=== PATIENT | male | born 1975 | race Caucasian/White ===

== ENCOUNTER 2017-03-26 16:45 | Emergency (ER) | payer OTHER ==
[2017-03-26] MEDS ORDERED: NORMAL SALINE 1000 ML 1,000 ML IV ONE (17:05)
--- NOTE | 2017-03-26 17:07 | ER Document Report ---
ED Cardiac - General Stated Complaint: INCREASED HEART RATE Time Seen by Provider: 03/26/17 16:52 Notes: Patient is a 42 year old male who presents to the ED via EMS with a chief complaint of palpitations. Patient states that earlier this afternoon he sat down to drink a beer and sat on the couch and had sudden onset of palpitations. EMS arrived on the scene found him to be in SVT. Vagal maneuvers were attempted twice followed by 6 mg of adenosine and again with 12 mg of adenosine which was able to break amount of SVT. Patient was brought to the emergency department for evaluation. She denies any previous history of palpitations, SVT. Past medical history significant for PTSD on Prozac and BuSpar. 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 At this time he denies any dizziness, palpitations, chest pain, shortness of breath, difficulty breathing, cough, nausea, vomiting, abdominal pain. - Related Data Allergies/Adverse Reactions: codeine [Codeine] Allergy (Intermediate, Verified 11/19/10 12:05) Hives Past Medical History - Social History Smoking Status: Current Every Day Smoker Family History: Reviewed & Not Pertinent - Past Medical History Cardiac Medical History: Denies: Hx Heart Attack, Hx Hypertension Pulmonary Medical History: Denies: Hx Asthma Neurological Medical History: Denies: Hx Cerebrovascular Accident, Hx Seizures GI Medical History: Denies: Hx Hepatitis, Hx Hiatal Hernia, Hx Ulcer Musculoskeltal Medical History: Infectious Medical History: Denies: Hx Hepatitis Past Surgical History: Denies: Hx Open Heart Surgery, Hx Pacemaker Review of Systems - Review of Systems Constitutional: No symptoms reported Cardiovascular: See HPI Respiratory: No symptoms reported Gastrointestinal: No symptoms reported Musculoskeletal: No symptoms reported Neurological/Psychological: No symptoms reported -: Yes All other systems reviewed and negative Physical Exam - Vital signs Vitals: BP 112/94 H 03/26/17 16:45 - Notes Notes: PHYSICAL EXAM GENERAL: Alert, interacts well. HEAD: Normocephalic, atraumatic. EYES: Pupils equal, round, and reactive to light. Extraocular movements intact. NECK: Full range of motion. Supple. Trachea midline. LUNGS: Clear to auscultation bilaterally, no wheezes, rales, or rhonchi. No respiratory distress. HEART: Regular rate and rhythm. No murmurs, gallops, or rubs. ABDOMEN: Soft, nondistended, nontender. No guarding, rebound, or rigidity.. Bowel sounds present in all 4 quadrants. EXTREMITIES: Moves all 4 extremities spontaneously. No edema, radial and dorsalis pedis pulses 2/4 bilaterally. No cyanosis. NEUROLOGICAL: Alert and oriented x4. Normal speech. PSYCH: Normal affect, normal mood. SKIN: Warm, dry, normal turgor. No rashes or lesions noted. Course - Re-evaluation Re-evalutation: 03/26/17 18:45 Patient is a 42-year-old male who is hemodynamically stable, no acute distress and afebrile. Presentation is consistent with paroxysmal supraventricular tachycardia. Patient tachycardia resolved after receiving adenosine via EMS. Patient clinically feels fine and wants to be discharged. CBC stable without any evidence of leukocytosis or anemia. D-dimer negative. Patient is PERC negative. Chemistry stable without any evidence of electrolyte abnormalities. Troponin not elevated. In thyroid function is stable. Patient educated on causes of a CT as well as indication for follow-up with cardiology. Patient agrees with plan. Discussed vagal maneuvers to do at home and otherwise patient is stable for discharge. - Vital Signs Vital signs: Temp Pulse Resp BP Pulse Ox 98.1 F 20 130/94 H 98 03/26/17 17:23 03/26/17 18:01 03/26/17 18:01 03/26/17 18:01 - Laboratory Result Diagrams: 03/26/17 17:03 03/26/17 17:39 Laboratory results interpreted by me: 03/26/17 03/26/17 17:03 17:39 RBC 5.78 H Hgb 18.1 H Hct 52.3 H AST 62 H ALT 83 H Discharge - Discharge Clinical Impression: SVT (supraventricular tachycardia) Condition: Good Disposition: HOME, SELF-CARE Instructions: Paroxysmal Supraventricular Tachycardia ([facility]) Forms: Return to Work, Treatment of Relative/Child Referrals: MARISSA ONEIL MD [EMERITUS] - Follow up in 1 week
[2017-03-26 17:14] LABS: ABSOLUTE BASOPHILS # (AUTO) 0.1 10^3/uL (0.0-0.2); ABSOLUTE EOSINOPHILS # (AUTO) 0.3 10^3/uL (0.0-0.6); ABSOLUTE MONOCYTES (AUTO) 0.9 10^3/uL (0.1-1.4); ABSOLUTE NEUT (AUTO) 6.1 10^3/uL (1.7-8.2); EOSINOPHILS % (AUTO) 2.7 % (0-6); HEMATOCRIT 52.3 % (37.9-51.0); HEMOGLOBIN 18.1 g/dL (13.5-17.0); MEAN CORPUSCULAR HEMOGLOBIN 31.3 pg (27.0-33.4); MEAN CORPUSCULAR HGB CONC 34.6 g/dL (32.0-36.0); MEAN CORPUSCULAR VOLUME 90 fl (80-97); MONOCYTES % (AUTO) 10.1 % (3-13); RED BLOOD COUNT 5.78 10^6/uL (4.35-5.55); RED CELL DISTRIBUTION WIDTH 13.6 % (11.5-14.0); SEGMENTED NEUTROPHILS % (AUTO) 65.2 % (42-78); WHITE BLOOD COUNT 9.4 10^3/uL (4.0-10.5)
--- NOTE | 2017-03-26 18:00 | EKG REPORT ---
SEVERITY:- OTHERWISE NORMAL ECG - SINUS TACHYCARDIA : Confirmed by: Jesse Slaughter MD 26-Mar-2017 17:59:15
[2017-03-26 18:10] LABS: ALANINE AMINOTRANSFERASE 83 U/L (21-72); ALBUMIN 4.2 g/dL (3.5-5.0); ALKALINE PHOSPHATASE 70 U/L (38-126); ANION GAP 9 (5-19); ASPARTATE AMINO TRANSFERASE 62 U/L (17-59); BILIRUBIN,DIRECT 0.3 mg/dL (0.0-0.4); BILIRUBIN,TOTAL 0.4 mg/dL (0.2-1.3); BLOOD UREA NITROGEN 15 mg/dL (7-20); CALCIUM 9.6 mg/dL (8.4-10.2); CARBON DIOXIDE 25 mmol/L (22-30); CHLORIDE 107 mmol/L (98-107); CREATINE KINASE 65 U/L (55-170); CREATININE RESULT 0.94 mg/dL (0.52-1.25); GLUCOSE 92 mg/dL (75-110); SODIUM 141.4 mmol/L (137-145); TOTAL PROTEIN 6.8 g/dL (6.3-8.2)
[2017-03-26 18:25] LABS: FREE T3 4.39 pg/mL (2.77-5.27)
[2017-03-26 18:39] LABS: THYROID STIMULATING HORMONE 1.2 uIU/mL (0.47-4.68)
[2017-03-26 18:46] VITALS: BP 127/92
== END 2017-03-26 18:49 | disposition home or self-care (01) ==
LOC: ER 16:45
DX: I47.1 Supraventricular tachycardia (principal); F43.10 Post-traumatic stress disorder, unspecified; Z79.899 Other long term (current) drug therapy; F17.200 Nicotine dependence, unspecified, uncomplicated; Z88.5 Allergy status to narcotic agent
CPT/HCPCS: 93005; 99285; 96360; 36415; 82550; 84443; 85025; 80053; 84484; 84481; 85379; 93010; J7030

== ENCOUNTER 2019-12-05 07:27 | Emergency (ER) | payer OTHER ==
[2019-12-05 08:07] LABS: ABSOLUTE BASOPHILS # (AUTO) 0.1 10^3/uL (0.0-0.2); ABSOLUTE EOSINOPHILS # (AUTO) 0.2 10^3/uL (0.0-0.6); ABSOLUTE LYMPHOCYTES (AUTO) 1.7 10^3/uL (0.5-4.7); ABSOLUTE MONOCYTES (AUTO) 0.8 10^3/uL (0.1-1.4); ABSOLUTE NEUT (AUTO) 8.9 10^3/uL (1.7-8.2); BASOPHILS % (AUTO) 0.7 % (0-2); EOSINOPHILS % (AUTO) 1.5 % (0-6); HEMATOCRIT 47.1 % (37.9-51.0); HEMOGLOBIN 16.2 g/dL (13.5-17.0); LYMPHOCYTES % (AUTO) 14.8 % (13-45); MEAN CORPUSCULAR HEMOGLOBIN 31.5 pg (27.0-33.4); MEAN CORPUSCULAR HGB CONC 34.4 g/dL (32.0-36.0); MEAN CORPUSCULAR VOLUME 92 fl (80-97); MONOCYTES % (AUTO) 6.5 % (3-13); PLATELET COUNT 213 10^3/uL (150-450); RED BLOOD COUNT 5.14 10^6/uL (4.35-5.55); RED CELL DISTRIBUTION WIDTH 13.6 % (11.5-14.0); SEGMENTED NEUTROPHILS % (AUTO) 76.5 % (42-78); TOTAL CELLS COUNTED % (AUTO) 100 %; WHITE BLOOD COUNT 11.6 10^3/uL (4.0-10.5)
--- NOTE | 2019-12-05 08:10 | RADIOLOGY REPORT (SQ) ---
EXAM DESCRIPTION: CHEST SINGLE VIEW IMAGES COMPLETED DATE/TIME: 12/05/2019 8:02 am REASON FOR STUDY: SVT COMPARISON: None. EXAM PARAMETERS: NUMBER OF VIEWS: One view. TECHNIQUE: Single frontal radiographic view of the chest acquired. RADIATION DOSE: NA LIMITATIONS: None. FINDINGS: LUNGS AND PLEURA: No opacities, masses or pneumothorax. No pleural effusion. MEDIASTINUM AND HILAR STRUCTURES: No masses. Contour normal. HEART AND VASCULAR STRUCTURES: Heart normal in size. Normal vasculature. BONES: No acute findings. HARDWARE: None in the chest. OTHER: No other significant finding. IMPRESSION: NO ACUTE RADIOGRAPHIC FINDING IN THE CHEST. TECHNICAL DOCUMENTATION: JOB ID: [id number] [employer]- All Rights Reserved Reading location - IP/workstation name: [email or web address]
[2019-12-05 08:14] LABS: ALBUMIN 4.1 g/dL (3.5-5.0); ALKALINE PHOSPHATASE 73 U/L (38-126); ANION GAP 5 (5-19); ASPARTATE AMINO TRANSFERASE 30 U/L (17-59); BILIRUBIN,DIRECT 0.3 mg/dL (0.0-0.4); BILIRUBIN,TOTAL 0.5 mg/dL (0.2-1.3); BLOOD UREA NITROGEN 17 mg/dL (7-20); CALCIUM 9.1 mg/dL (8.4-10.2); CARBON DIOXIDE 23 mmol/L (22-30); CHLORIDE 113 mmol/L (98-107); CREATINE KINASE 100 U/L (55-170); GLUCOSE 98 mg/dL (75-110); POTASSIUM 4.7 mmol/L (3.6-5.0); TOTAL PROTEIN 6.5 g/dL (6.3-8.2)
--- NOTE | 2019-12-05 08:25 | ER Document Report ---
ED General - General Chief Complaint: Arrhythmia Stated Complaint: RAPID HEART RATE Time Seen by Provider: 12/05/19 08:25 Primary Care Provider: ELSI VALENTINE MD [ACTIVE STAFF] - Follow up as needed LIAT MENDOZA MD [ACTIVE PROVISIONAL STAFF] - Follow up as needed - [facility] Notes: 44-year-old male presents after an episode of SVT. Patient reports he has a history of SVT, this is now his third episode. He reports his first episode was a little over a year ago, he received adenosine which converted him. He states that he had an episode yesterday where he felt his heart racing, he performed a vagal maneuver by bearing down which converted him. Patient states that around 630 this morning he again felt that his heart was racing, vagal maneuvers did not work. He received 12 mg of adenosine via EMS, report initial rate was 203. He went into sinus rhythm after that. 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 He is not on any current medication. He does note potentially he is dehydrated as he has been moving the past 2 days and has been sweating a lot in the heat. He otherwise currently denies complaints and would like to go home. - Related Data Allergies/Adverse Reactions: codeine [Codeine] Allergy (Intermediate, Verified 11/19/10 12:05) Hives Past Medical History - Social History Smoking Status: Unknown if Ever Smoked Family History: Reviewed & Not Pertinent Patient has homicidal ideation: No - Past Medical History Cardiac Medical History: Denies: Hx Heart Attack, Hx Hypertension Pulmonary Medical History: Denies: Hx Asthma Neurological Medical History: Denies: Hx Cerebrovascular Accident, Hx Seizures Renal/ Medical History: Denies: Hx Peritoneal Dialysis GI Medical History: Denies: Hx Hepatitis, Hx Hiatal Hernia, Hx Ulcer Musculoskeletal Medical History: Infectious Medical History: Denies: Hx Hepatitis Past Surgical History: Denies: Hx Open Heart Surgery, Hx Pacemaker Review of Systems - Review of Systems Constitutional: denies: Chills, Fever EENT: No symptoms reported Cardiovascular: denies: Chest pain Respiratory: denies: Short of breath Gastrointestinal: denies: Abdominal pain, Nausea, Vomiting Genitourinary: denies: Dysuria Male Genitourinary: No symptoms reported Musculoskeletal: denies: Muscle pain Skin: No symptoms reported Hematologic/Lymphatic: No symptoms reported Neurological/Psychological: denies: Weakness Physical Exam - Vital signs Vitals: Resp Pulse Ox 22 H 94 12/05/19 07:40 12/05/19 07:40 - General General appearance: Appears well In distress: None - HEENT Head: Normocephalic, Atraumatic Extraocular movements intact: Yes Neck: Other - No JVD - Respiratory Breath sounds: Normal - Cardiovascular Rhythm: Regular Heart sounds: Normal auscultation Murmur: No Pulses: Normal: Radial - Abdominal Tenderness: Nontender - Extremities General upper extremity: Normal ROM General lower extremity: Normal ROM. No: Edema - Neurological Neuro grossly intact: Yes Cognition: Normal Orientation: AAOx4 - Psychological Associated symptoms: Normal affect - Skin Skin Temperature: Warm Course - Re-evaluation Re-evalutation: 44-year-old male with successful conversion to normal sinus rhythm from SVT following 12 mg of adenosine administered by EMS. Now his third episode. He is well-appearing, continues in normal sinus rhythm, no gross physical exam abnormalities. Patient agreeable to stay for laboratory evaluation to eval for any electrolyte abnormalities. Would have a low suspicion for rhabdo however will assess with CK. Give fluids. 12/05/19 09:16 Labs reviewed. Minimal leukocytosis, likely reactionary. Electrolytes okay. Creatinine within normal limits. No elevation of CK to suggest rhabdo. 12/05/19 09:44 No UTI. No consolidation on chest x-ray. I went in to update patient on his lab results. He has remained in normal sinus rhythm throughout his duration here. He reports he is ready to go home. Discussed with him need to follow-up with cardiology, he states [facility]. Return cautions were given, patient was stable at time of discharge. - Vital Signs Vital signs: Temp Pulse Resp BP Pulse Ox 98.2 F 22 H 123/79 96 12/05/19 07:41 12/05/19 08:01 12/05/19 08:00 12/05/19 08:01 - Laboratory Result Diagrams: 12/05/19 07:40 12/05/19 07:40 Laboratory results interpreted by me: 12/05/19 12/05/19 07:40 07:40 WBC 11.6 H Absolute Neuts (auto) 8.9 H Chloride 113 H - Diagnostic Test Radiology reviewed: Image reviewed, Reports reviewed - EKG Interpretation by Me Additional EKG results interpreted by me: EKG is interpreted by me. Normal sinus rhythm with rate 86. Narrow QRS, QTC within normal limits. No ST segment elevation. Discharge - Discharge Clinical Impression: Paroxysmal SVT (supraventricular tachycardia) Condition: Stable Disposition: HOME, SELF-CARE Instructions: Paroxysmal Supraventricular Tachycardia ([facility]) Additional Instructions: [facility]. Please return to the emergency department for any concerning worsening symptoms. Referrals: LIAT MENDOZA MD [ACTIVE PROVISIONAL STAFF] - Follow up as needed ELSI VALENTINE MD [ACTIVE STAFF] - Follow up as needed
[2019-12-05] MEDS ORDERED: RINGERS SOLUTION,LACTATED 1,000 ML IV ONE (08:39)
[2019-12-05 08:43] VITALS: BP 123/79
[2019-12-05 09:40] LABS: APPEARANCE,URINE CLEAR; BILIRUBIN,URINE NEGATIVE (NEGATIVE); COLOR,URINE STRAW; GLUCOSE, URINE NEGATIVE (NEGATIVE); KETONES,URINE NEGATIVE (NEGATIVE); LEUKOCYTE ESTERASE,URINE NEGATIVE (NEGATIVE); NITRITE,URINE NEGATIVE (NEGATIVE); PROTEIN,URINE NEGATIVE (NEGATIVE); UROBILINOGEN,URINE NEGATIVE mg/dL (<2.0)
--- NOTE | 2019-12-05 12:29 | EKG REPORT ---
SEVERITY:- NORMAL ECG - SINUS RHYTHM : Confirmed by: Jesse Slaughter MD 05-Dec-2019 12:29:23
== END 2019-12-05 10:09 | disposition home or self-care (01) ==
LOC: ER 07:27
DX: I47.1 Supraventricular tachycardia (principal); Z88.8 Allergy status to other drugs, medicaments and biological substances
CPT/HCPCS: 93005; 99285; 96360; 36415; 82553; 82550; 85025; 80053; 81001; 71045; 93010; J7120